=== PATIENT | male | born 2005 | race Caucasian/White ===

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

== ENCOUNTER 2024-02-02 12:03 | Emergency (ER) | payer BC ==
[2024-02-02 12:09] VITALS: BP 134/82; PULSE 85; RESP 20; TEMP 97.6; BMI 33.6
== END 2024-02-02 13:33 | disposition home or self-care (01) ==
LOC: JERFT 12:03
DX: R11.10 Vomiting, unspecified (principal); R07.0 Pain in throat
CPT/HCPCS: 99283-25

== ENCOUNTER 2024-03-04 22:21 | Emergency (ER) | payer OTHER, BC ==
[2024-03-04 22:27] VITALS: BP 144/80; PULSE 92; RESP 18; TEMP 98; BMI 28.1
[2024-03-04] MEDS ORDERED: ACETAMINOPHEN 325 MG TABLET (FP) ONE (23:31)
[2024-03-04] MEDS: ACETAMINOPHEN 325 MG TABLET (FP) PO ONE (23:32)
== END 2024-03-05 00:37 | disposition home or self-care (01) ==
LOC: JER 22:21 → JERFT 22:21 → JER 03-05 00:37
DX: S60.511A Abrasion of right hand, initial encounter (principal); S99.922A Unspecified injury of left foot, initial encounter; M79.89 Other specified soft tissue disorders; V03.00XA Pedestrian on foot injured in collision with car, pick-up truck or van in nontraffic accident, initial encounter; Y92.828 Other wilderness area as the place of occurrence of the external cause
CPT/HCPCS: 73110-TC-RT-FY; 73130-TC-RT-FY; 73610-TC-LT-FY; 73630-TC-LT; 99284-25